=== PATIENT | female | born 1935 | race Caucasian/White ===

== ENCOUNTER 2017-05-25 09:33 | Emergency (ER) | payer BC, OTHER ==
[~2017-05-25] VITALS: Ht 170.2 cm; Wt 74.8 kg
[~2017-05-25 09:33] MED LIST: ADULT ASPIRIN81 MG; AMLODIPINE BESYL; ATENOLOL25 GM; ATORVASTATIN CA10 MG; DIOVAN320 MG; GLUCOPHAGE XR500 MG; TIROSINT100 MCG; ZETIA10 MG
== END 2017-05-25 14:00 | disposition home or self-care (01) ==
LOC: ER 09:33
DX: R68.84 Jaw pain (principal)

== ENCOUNTER 2019-05-26 13:40 | Outpatient (CLI) | payer BC, OTHER | END 2019-05-26 13:41 | disposition home or self-care (01) | LOC: RAD 13:40 | DX: R05 Cough (principal) ==